=== PATIENT | male | born 1975 | race Caucasian/White ===

== ENCOUNTER → 2019-07-23 14:01 | Outpatient (CLI) | payer BC, SELFPAY ==
[2019-07-23 14:16] LABS: Add Manual Diff / Slide Review NO; Basophils Absolute Auto 0 /uL (0-100); Basophils Percent Auto 0.3 % (0-2); Eosinophils Absolute Auto 0 /uL (0-450); Eosinophils Percent Auto 0.3 % (2-4); Hematocrit 42.6 % (41-53); Hemoglobin 14.7 g/dL (13.5-17.5); Lymphocytes Absolute Auto 500 /uL (1100-4500); Lymphocytes Percent Auto 6.8 % (25-40); Mean Corpuscular HGB Conc 34.4 % (30-36); Mean Corpuscular Hemoglobin 29.6 PG (26-34); Monocytes Absolute Auto 100 /uL (0-900); Monocytes Percent Auto 1.6 % (3-14); Neutrophils Absolute Auto 7200 /uL (1500-7000); Platelet Count 222 X10^3/uL (150-400); Red Blood Cell Count 4.95 X10^6/uL (4.5-5.9); Red Cell Distribution Width 13.5 % (11.6-14.8); White Blood Cell Count 7.9 X10^3/uL (4.5-11.0)
[2019-07-23 14:30] LABS: Alanine Aminotransferase 42 IU/L (<50); Albumin 4.8 g/dL (3.5-5.0); Albumin Globulin Ratio 1.7 (1.0-2.8); Alkaline Phosphatase 74 U/L (38-126); Aspartate Aminotransferase 44 IU/L (17-59); BUN Creatinine Ratio 11.7 (6-22); Bilirubin Total 0.7 mg/dL (0.2-1.3); Blood Urea Nitrogen 14 mg/dL (9-20); Calcium 9.7 mg/dL (8.4-10.2); Carbon Dioxide 28 mmol/L (22-32); Chloride 103 mmol/L (98-107); Estimated Glomerular Filt Rate > 60.0 mL/min (>60); Globulin 2.8 g/dL (1.7-4.1); Glucose 157 mg/dL (70-100); HEMOLYSIS < 15 (0-50); Potassium 4.9 mmol/L (3.4-5.1); Sodium 141 mmol/L (137-145); Total Protein 7.6 g/dL (6.3-8.2)
[2019-07-23 14:42] LABS: D Dimer < 200 ng/mL (<230)
== END ==
PROVIDERS: PCP Physician Assistant Medical; Visit Provider Physician Assistant
DX: R05 Cough (principal); R06.02 Shortness of breath
CPT/HCPCS: 36415; 80053; 85025; 85379

== ENCOUNTER → 2022-03-24 09:22 | Outpatient (CLI) | payer BC, SELFPAY ==
[2022-03-24 10:25] LABS: Add Manual Diff / Slide Review NO; Alanine Aminotransferase 53 IU/L (<50); Albumin 4.9 g/dL (3.5-5.0); Albumin Globulin Ratio 1.8 (1.0-2.8); Alkaline Phosphatase 62 U/L (38-126); Aspartate Aminotransferase 39 IU/L (17-59); BUN Creatinine Ratio 13.2 (6-22); Basophils Absolute Auto 0 /uL (0-100); Basophils Percent Auto 0.5 % (0-2); Bilirubin Total 0.7 mg/dL (0.2-1.3); Blood Urea Nitrogen 15 mg/dL (9-20); Calcium 9.1 mg/dL (8.4-10.2); Carbon Dioxide 30 mmol/L (22-32); Chloride 102 mmol/L (98-107); Cholesterol 192 mg/dL (140-199); Eosinophils Absolute Auto 0 /uL (0-450); Eosinophils Percent Auto 0.7 % (2-4); Estimated Glomerular Filt Rate > 60 mL/min (>60); Globulin 2.8 g/dL (1.7-4.1); Glucose 99 mg/dL (70-100); HDL Cholesterol 48 mg/dL (40-60); HEMOLYSIS < 15 (0-50); Hematocrit 43.4 % (41-53); Hemoglobin 14.9 g/dL (13.5-17.5); LDL Cholesterol Calculated 126 mg/dL (<100); Lymphocytes Absolute Auto 1600 /uL (1100-4500); Lymphocytes Percent Auto 31.5 % (25-40); Mean Corpuscular HGB Conc 34.4 % (30-36); Mean Corpuscular Hemoglobin 29.2 PG (26-34); Mean Corpuscular Volume 84.9 fL (80-100); Monocytes Absolute Auto 300 /uL (0-900); Monocytes Percent Auto 6.9 % (3-14); Neutrophils Absolute Auto 3000 /uL (1500-7000); Neutrophils Percent Auto 60.4 % (50-75); Platelet Count 222 X10^3/uL (150-400); Potassium 4.5 mmol/L (3.4-5.1); Red Blood Cell Count 5.11 X10^6/uL (4.5-5.9); Red Cell Distribution Width 13.1 % (11.6-14.8); Sodium 139 mmol/L (137-145); Total Protein 7.7 g/dL (6.3-8.2); Triglycerides 88 mg/dL (35-150)
[2022-03-24 10:35] LABS: Hemoglobin A1C% w Est Avg Glu 5.6 % (4.0-6.0)
[2022-03-24 11:04] LABS: Creatinine Urine Random 41.6 mg/dL
[2022-03-24 11:09] LABS: Microalbumin Urine Random < 0.6 mg/dL (0-1.6)
[2022-03-25 20:29] LABS: Deamidated Gliadin Ab IgA 5 units (0-19); Deamidated Gliadin Ab IgG 7 units (0-19); Immunoglobulin A,Qn 185 mg/dL (90-386); t-Transglutaminase IgA <2 U/mL (0-3)
[2022-04-01 17:17] LABS: Percent Free Testosterone 3.28 % (1.50-4.20); Testosterone Free 10.19 ng/dL (5.00-21.00); Testosterone Total 310.8 ng/dL (264.0-916.0)
== END ==
PROVIDERS: PCP Family Medicine; Referring Provider Family Medicine; Visit Provider Family Medicine
DX: D72.9 Disorder of white blood cells, unspecified (principal); R73.9 Hyperglycemia, unspecified; K90.41 Non-celiac gluten sensitivity; G89.29 Other chronic pain; M54.9 Dorsalgia, unspecified; R03.0 Elevated blood-pressure reading, without diagnosis of hypertension; R06.09 Other forms of dyspnea; R55 Syncope and collapse; R53.83 Other fatigue
CPT/HCPCS: 36415; 80053; 80061; 82043; 82570; 82784; 83036; 83516; 84402; 84403; 84443; 85025

== ENCOUNTER → 2022-05-25 13:05 | Outpatient (CLI) | payer BC, SELFPAY ==
[2022-05-25 14:48] LABS: COVID19 -Nasal RAPID Negative (Negative)
--- NOTE | 2022-05-26 15:12 | DI.NM.S_ITS ---
DATE OF SERVICE: 05/25/2022 PROCEDURE PERFORMED: Exercise treadmill stress and rest myocardial perfusion imaging study with gating to assess to assess ejection fraction and regional wall motion. ORDERING PROVIDER: Dr. Luis Felipe Bowden. INDICATIONS: The patient is a 47-year-old male with fatigue and exertional dyspnea. EXERCISE TREADMILL TESTING: The patient was able to exercise for 10 minutes, 51 seconds on a standard Danilo protocol, suggesting average exercise capacity with an ABDIEL of 0%, achieving 12.8 METs. He had a normal heart rate response to exercise, achieving a maximum heart rate of 162 BPM (94% of his predicted maximum). He had a mild hypertensive blood pressure response to exercise with a resting blood pressure of 140/96, increasing to a maximum of 200/100. He had mild chest tightness at peak exercise, but was vague in his description. His resting ECG is normal and there were no significant ST shifts with exercise. There were no arrhythmias. At 9 minutes, 50 seconds of exercise at a heart rate of 149 BPM, 27.0 millicuries of technetium-99m Myoview was injected. He was imaged 10 minutes later using a gated SPECT acquisition protocol. The day prior, he had been injected with 24.6 millicuries of technetium-99m Myoview while at rest and was imaged 20 minutes later, again using a gated SPECT acquisition protocol. FINDINGS: 1. Raw data: There is good myocardial tracer uptake. Lung/heart ratio is normal at 0.25 with a normal TID ratio of 0.85. 2. Quantitated gated SPECT: Post-stress ejection fraction is estimated at 67% without any focal wall motion abnormality. Resting ejection fraction is 64% with a mildly increased end-diastolic volume of 144 mL. 3. Myocardial perfusion imaging: Post-stress supine images shows a fairly normal myocardial perfusion pattern with a very subtle defect in the mid inferior wall in a pattern consistent with diaphragmatic attenuation, supported by its complete resolution on the prone images, which reveal a normal, homogeneous pattern of tracer activity. The resting images show an identical perfusion pattern without any areas of improvement. IMPRESSION: 1. Normal myocardial perfusion study. 2. No evidence of myocardial ischemia or previous myocardial infarction. 3. Normal left ventricular systolic function with mildly increased left ventricular volumes. 4. Average exercise capacity with vague chest tightness, but no ECG changes of ischemia. He had a mild hypertensive blood pressure response to exercise. 5. Compared to the previous study from 03/25/2014, the previously seen perfusion defects are no longer evident. The previous ejection fraction was 59% with a resting end-diastolic volume of 142 mL, suggesting the absence of any significant change. Lobito Shepherd - TAJ/lance/imtiaz doc#: [id number]/job#: [id number] dd: 05/26/2022 13:07:00 dt: 05/26/2022 14:30:00 DICTATING /COPIES TO: Tobin Paul MD COPIES MNE: PARAG;
--- NOTE | 2022-05-26 15:38 | DI.NM.S_ITS ---
DATE OF SERVICE: 05/25/2022 PROCEDURE PERFORMED: Exercise treadmill stress and rest myocardial perfusion imaging study with gating to assess to assess ejection fraction and regional wall motion. ORDERING PROVIDER: Dr. Luis Felipe Bowden. INDICATIONS: The patient is a 47-year-old male with fatigue and exertional dyspnea. EXERCISE TREADMILL TESTING: The patient was able to exercise for 10 minutes, 51 seconds on a standard Danilo protocol suggesting average exercise capacity with an ABDIEL of 0%, achieving 12.8 METs. He had a normal heart rate response to exercise, achieving a maximum heart rate of 162 BPM (94% of his predicted maximum). He had a mild hypertensive blood pressure response with a resting blood pressure of 140/96, increasing to a maximum of 200/100. He had mild chest tightness at peak exercise but was vague in his description. = His resting ECG is normal and there were no significant ST shifts with exercise. There were no arrhythmias. At 9 minutes, 50 seconds of exercise at a heart rate of 149 BPM, 27.0 millicuries of technetium-99m Myoview was injected. He was imaged 10 minutes later using a gated SPECT acquisition protocol. The day prior, he had been injected with 24.6 millicuries of technetium-99m Myoview while at rest and was imaged 20 minutes later, again using a gated SPECT acquisition protocol. FINDINGS: 1. Raw data: There is good myocardial tracer uptake. Lung/heart ratio is normal at 0.25 with a normal TID ratio of 0.85. 2. Quantitated gated SPECT: Post-stress ejection fraction is estimated at 67% without any focal wall motion abnormality. Resting ejection fraction is 64% with a mildly increased end-diastolic volume of 144 mL. 3. Myocardial perfusion imaging: Post-stress supine images shows a fairly normal myocardial perfusion pattern with a very subtle defect in the mid inferior wall in a pattern consistent with diaphragmatic attenuation, supported by its complete resolution on the prone images, which reveal a normal, homogeneous pattern of tracer activity. The resting images show an identical perfusion pattern without any areas of improvement. IMPRESSION: 1. Normal myocardial perfusion study. 2. No evidence of myocardial ischemia or previous myocardial infarction. 3. Normal left ventricular systolic function with mildly increased left ventricular volumes. 4. Average exercise capacity with vague chest tightness but no ECG changes of ischemia. He had a mild hypertensive blood pressure response to exercise. 5. Compared to the previous study from 03/25/2014, the previously seen perfusion defects are no longer evident. The previous ejection fraction was 59% with a resting end-diastolic volume of 142 mL, suggesting the absence of any significant change. Lobito Shepherd - TAJ/lance/imtiaz doc#: [id number]/job#: [id number] dd: 05/26/2022 13:07:00 dt: 05/26/2022 14:30:00 DICTATING /COPIES TO: Tobin Paul MD COPIES MNE: PARAG;
== END ==
PROVIDERS: PCP Family Medicine; Referring Provider Family Medicine; Visit Provider Family Medicine
DX: R06.09 Other forms of dyspnea (principal); R55 Syncope and collapse; Z20.822 Contact with and (suspected) exposure to COVID-19; I10 Essential (primary) hypertension
CPT/HCPCS: 78452; 87635; 93017; A9502

== ENCOUNTER → 2023-11-12 12:57 | Outpatient (CLI) | payer BC, SELFPAY ==
[2023-11-12 13:21] LABS: Add Manual Diff / Slide Review NO; Basophils Absolute Auto 100 /uL (0-100); Basophils Percent Auto 0.7 % (0-2); Eosinophils Absolute Auto 100 /uL (0-450); Eosinophils Percent Auto 1.5 % (2-4); Hematocrit 43.3 % (41-53); Hemoglobin 14.7 g/dL (13.5-17.5); Lymphocytes Absolute Auto 1900 /uL (1100-4500); Lymphocytes Percent Auto 26.6 % (25-40); Mean Corpuscular HGB Conc 33.9 % (30-36); Mean Corpuscular Hemoglobin 28.8 PG (26-34); Mean Corpuscular Volume 85.1 fL (80-100); Monocytes Absolute Auto 600 /uL (0-900); Monocytes Percent Auto 7.8 % (3-14); Neutrophils Absolute Auto 4500 /uL (1500-7000); Neutrophils Percent Auto 63.4 % (50-75); Platelet Count 237 X10^3/uL (150-400); Red Blood Cell Count 5.09 X10^6/uL (4.5-5.9); Red Cell Distribution Width 13.7 % (11.6-14.8); White Blood Cell Count 7.1 X10^3/uL (4.5-11.0)
[2023-11-12 13:41] LABS: Alanine Aminotransferase 49 IU/L (<50); Albumin 4.6 g/dL (3.5-5.0); Albumin Globulin Ratio 1.5 (1.0-2.8); Alkaline Phosphatase 63 U/L (38-126); Aspartate Aminotransferase 36 IU/L (17-59); Bilirubin Total 0.9 mg/dL (0.2-1.3); Blood Urea Nitrogen 16 mg/dL (9-20); Carbon Dioxide 26 mmol/L (22-32); Chloride 107 mmol/L (98-107); Estimated Glomerular Filt Rate > 60 mL/min (>60); Glucose 90 mg/dL (70-100); HEMOLYSIS 41 (0-50); Potassium 4.2 mmol/L (3.4-5.1); Sodium 139 mmol/L (137-145); Total Protein 7.6 g/dL (6.3-8.2)
== END ==
PROVIDERS: PCP Family Medicine; Referring Provider Physician Assistant; Visit Provider Physician Assistant
DX: H81.10 Benign paroxysmal vertigo, unspecified ear (principal)
CPT/HCPCS: 36415; 80053; 85025

== ENCOUNTER → 2024-02-14 18:33 | Outpatient (CLI) | payer BC, SELFPAY ==
--- NOTE | 2024-02-14 18:35 | DI.RAD.S_ITS ---
PROCEDURE: XR HAND RT MIN 3V INDICATIONS: Right-hand puncture wound TECHNIQUE: 3 views of the hand(s) acquired. COMPARISON: None. FINDINGS: Bones: No fractures or dislocations. Carpal bones are normally aligned. No suspicious bony lesions. Soft tissues: No suspicious soft tissue calcifications. No radiopaque foreign body. IMPRESSION: No acute bony abnormality. No radiopaque foreign body identified. Dictated by: Rohan Arndt M.D. on 02/15/2024 at 10:02 Approved by: Rohan Arndt M.D. on 02/15/2024 at 10:04
== END ==
PROVIDERS: PCP Family Medicine; Referring Provider Nurse Practitioner Family; Visit Provider Nurse Practitioner Family
DX: S61.431A Puncture wound without foreign body of right hand, initial encounter (principal); X58.XXXA Exposure to other specified factors, initial encounter
CPT/HCPCS: 73130

== ENCOUNTER → 2024-03-11 07:47 | Outpatient (CLI) | payer BC, SELFPAY ==
[2024-03-11 08:36] LABS: Influenza A - CEPHEID Flu A NEGATIVE (NEGATIVE); Influenza B - CEPHEID Flu B NEGATIVE (NEGATIVE); Respiratory Syncytial Virus Negative (Negative)
[2024-03-11 08:37] LABS: COVID-19 CEPHEID 4-PLEX PCR Negative (Negative)
== END ==
PROVIDERS: PCP Family Medicine; Referring Provider Nurse Practitioner Family; Visit Provider Nurse Practitioner Family
DX: R50.9 Fever, unspecified (principal)
CPT/HCPCS: 0241U